=== PATIENT | female | born 1995 | race Caucasian/White ===

== ENCOUNTER 2019-01-31 10:29 | Observation (INO) ==
[2019-01-31] MEDS ORDERED: MOM Conc 10 ML UD.LIQ PO PRN (12:47)
[2019-01-31] MEDS ORDERED: Mag Hydrox/Al Hydrox/Simeth 30 ML UDC PO PRN (12:47)
[2019-01-31] MEDS ORDERED: traZODone 50 MG TABLET PO PRN (12:47)
[2019-01-31] MEDS ORDERED: *HR* LORazepam 2 MG/ML VIAL IM PRN (12:47)
[2019-01-31] MEDS ORDERED: Ibuprofen 400 MG TABLET PO PRN (12:47)
[2019-01-31] MEDS ORDERED: *HR* LORazepam 1 MG TABLET PO PRN (12:47)
[2019-01-31] MEDS: hydrOXYzine pamoate 25 MG CAPSULE PO PRN ×2 (17:46→20:53)
--- NOTE | 2019-02-01 12:23 | Psychiatry History & Physical ---
Date of Encounter: 02/01/19 Time of Encounter: 11:00 History of Present Illness Patient Stated Chief Complaint: "anxiety attack during clinicals and failed MedSurg" Medicare Admission Attestation: For traditional Medicare patients the provided hospital inpatient services are reasonable and necessary and in the case of services not specified as inpatient-only under 42 CFR 419.22 (n), that they are appropriately provided as inpatient services in accordance 42 CFR 412.3. For Critical Access Hospital the patient may reasonably be expected to be discharged or transferred to a hospital within 96 hours after admission to the Critical Access Hospital. Admitted From: Direct Admit (direct admit from [facility] ED) Plans for Post Hospital Care: Home History of Present Illness: Ms. Barnes is a 23 year old female who was admitted for suicidal ideation. 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 She reports that she failed her MedSurg clinical last Friday because she had an anxiety attack. She was sad throughout the week, but kept busy by hanging out with friends. On 01/30/19, she went to [facility] in [place] and had a lot to drink. While she was intoxicated, she told her friends that she wanted to kill herself. They called the police, who brought her to [facility], and then she was transferred to [place]. She denies ever attempting suicide and denies that she had a plan on admission. She has cut her wrists in the past, but states that it was to relieve stress, not to kill herself. She did cut right wrist this past weekend, which was the first self-inflicted wound in over a year. She is currently denying suicidal ideation, and states that she is happy to be alive. She wants to live because now she knows "how much other people care about me." Her parents visited her on the unit last night from [place] she states that she was happy to see them. She says that she has a good relationship with her parents, but that they were hurt that she hadn't told them what was going on or asked them for help. She says that if she were to have suicidal thoughts again, she would tell her parents. She also plans to continue to follow up with her counselor. Currently denies suicidal ideation, on the subtle ideation, auditory and visual hallucinations. Rates her current depression level as 0/10 on a 0-10 scale with 0 being none and 10 being the worst. She rates her anxiety as 1/10 on the same scale. Denies being in any physical pain. Past Med Surg Social Fam HX - Past Medical History Medical history: no medical history - Past Psychiatric History Psychiatric history: Reports: anxiety, ADHD. Denies: prior suicide attempt, previous psychiatric hospitalization Past psychiatric history details: Reports that she has never been hospitalized in a psychiatric unit in the past. She has been diagnosed with ADHD and generalized anxiety disorder. She used to take Vyvanse, but was recently switched to Adderall. She states that the panic attack at [facility] happened during this medication change. She also states that she is seen a counselor in the past. She used to see a counselor at [employer], but stated that "they sucked." She now sees a counselor in [place]. Family psychiatric history: Yes Family Psychiatric History Details: Paternal grandmother has bipolar disorder. Family History of Suicide: None - Past Surgical History Surgical History: no surgical history - Social History Smoking Status: Never smoker Smokeless Tobacco Status: No Alcohol use: occasionally, recent Drug use: marijuana Additional substance use detail: Patient states that she does drink alcohol. She drank heavily on 01/30/2019 at [employer] in [place], which led to her admitting to her friends that she wanted to kill herself. She states that this was her first time d rinking alcohol since [facility] and that this was her first time going out all school year. She admits to smoking marijuana, but denies using any other illicit substances. She did test positive for THC and amphetamines on urine drug screen, which would correlate to the marijuana and Adderall. Denies tobacco use. Occupational status: student Current living situation: Home Activity Level: Independent ambulation Additional social history: Patient was born and raised in [place], [place] by b oth parents. She is the middle child, and has an older sister and a younger brother. She reports being posterior to her younger brother than her older sister. 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 Hobbies include hanging out with her friends. - Family History Mother Adopted: [place]: Daniela Barnes Age: 49 Family Member Ethnicity: Non- Living Status: Still Living Hx Family Cardiac Disorders: No Hx Family Respiratory Disorders: No Hx Family Cancer: No Hx Family GI Disorders: No Hx Family Genitourinary Disorders: No Hx Family Endocrine Disorder: No Hx Family Musculoskeletal Disorders: No Hx Family Neuromuscular Disorders: No Hx Family Neurologic Disorders: No Hx Family HEENT Disorders: No Hx Family Autoimmune Disorders: No Hx Family Reproductive Disorders: No Hx Family Psychosocial Disorders: No Hx Family Medical Disorders: No Medications & Allergies Dextroamphetamine/Amphetamine [Adderall Xr 20 mg Capsule] 20 mg PO DAILY 02/01/19 [History] Multivit with Calcium,Iron,Min [One Daily Women's] 2 tab PO DAILY 02/01/19 [History] Allergy/AdvReac Type Severity Reaction Status Date / Time No Known Allergies Allergy Verified 02/01/19 08:40 Review of Systems Musculoskeletal: Reports: other (denies pain over her self-inflicted wounds) Psychiatric: Reports: anxiety, difficulty concentrating, panic attacks. Denies: depression, suicidal ideation, homicidal ideation, auditory hallucinations, visual hallucinations Exam - HEENT Head exam IM: Present: normal inspection Eye exam IM: Present: EOMI, normal appearance - Neurological Neurological exam: Present: alert - Respiratory Respiratory exam IM: Absent: accessory muscle use, respiratory distress - Extremities Extremities exam IM: Present: full ROM - Skin Skin exam IM: Present: abrasion (Several horizontal self-inflicted wounds on right wrist; no obvious signs of infection), dry - Constitutional Vitals: Temp Pulse Resp BP Pulse Ox 98.5 F 77 16 124/82 95 01/31/19 20:54 01/31/19 20:54 01/31/19 20:54 01/31/19 20:54 01/31/19 20:54 General appearance: age & developmentally appropriate, well-groomed, thin - Musculoskeletal Gait: normal Station: relaxed Strength & Tone: normal for patient - Psychiatric Patient Orientation: Yes Person, Yes Time, Yes Place, Yes Circumstance Level of alertness: Alert Behavior: calm, cooperative Psychomotor activity: Normal Eye Contact: Maintains Eye Contact Mood Description: Euthymic/stable Patient description of mood: "happy" Affect description: congruent with mood Speech Volume: Normal Speech pattern: normal rate, normal rhythm, normal tone, appropriate, clear, coherent Language & Vocabulary: consistent with education Thought Process: Intact, Logical, Linear, Goal Oriented Thought Content: Yes Intact, No Suicidal ideation, No Homicidal ideation Perceptual Disturbances: No Reacting to internal stimuli, No Auditory hallucinations, No Visual hallucinations Attention Span Ability: Capable of Focused Attention Memory Description: Grossly Intact Patient Reliability: Reliable Historian Fund of knowledge: Yes average Intelligence Estimate: Average Judgment: Fair Insight: Partial Assessment and Plan (1) Anxiety Status: Chronic Additional Plan: 1. Patient seems to have anxiety due to recent school stressors. Currently denying suicidal ideation and rates her anxiety as 11/19. 2. No new medications are indicated at this time. 3. Encourage group participation while on the unit. Patient has been seen attending several groups today and interacting with other patients. 4. Plan for discharge home today with father. 5. Patient is to follow-up with her outpatient counselor. (2) Self-inflicted laceration of wrist Status: Acute Plan: Admit inpatient for safety and stabilization, Close observation, Suicide Precautions per unit protocol, Encourage participation in unit milieu, Group Therapy, Monitor sleep, Monitor appetite Additional Plan: 1. Please see above plan. Qualifiers: Encounter type: initial encounter Laterality: right Qualified Code(s): S61.511A - Laceration without foreign body of right wrist, initial encounter - Attending Attestation I examined this patient and my medical decision-making was reviewed with the Resident Physician. I agree with the documented findings, disposition and treatment plan as described.
--- NOTE | 2019-02-01 12:24 | Discharge Summary ---
Date of Encounter: 02/01/19 Time of Encounter: 11:00 Diagnosis - Discharge Diagnosis (1) Anxiety Status: Chronic (2) Self-inflicted laceration of wrist Status: Acute Qualifiers: Encounter type: initial encounter Laterality: right Qualified Code(s): S61.511A - Laceration without foreign body of right wrist, initial encounter Medications - Discharge Medications Dextroamphetamine/Amphetamine [Adderall Xr 20 mg Capsule] 20 mg PO DAILY 02/01/19 [History] Multivit with Calcium,Iron,Min [One Daily Women's] 2 tab PO DAILY 02/01/19 [History] Allergy/AdvReac Type Severity Reaction Status Date / Time No Known Allergies Allergy Verified 02/01/19 08:40 Provider Date of admission: 01/31/19 10:29 Primary care physician: PCP NONE Discharging clinician: Daniela Connolly Psychiatry Exam - Constitutional Vitals: Temp Pulse Resp BP Pulse Ox 98.5 F 77 16 124/82 95 01/31/19 20:54 01/31/19 20:54 01/31/19 20:54 01/31/19 20:54 01/31/19 20:54 General appearance: age & developmentally appropriate, well-groomed, thin - Musculoskeletal Gait: normal Station: relaxed Strength & Tone: normal for patient - Psychiatric Patient Orientation: Yes Person, Yes Time, Yes Place, Yes Circumstance Level of alertness: Alert Behavior: calm, cooperative Psychomotor activity: Normal Eye Contact: Maintains Eye Contact Mood Description: Euthymic/stable Patient description of mood: "happy" Affect description: congruent with mood Speech Volume: Normal Speech pattern: normal rate, normal rhythm, normal tone, appropriate, clear, coherent Language & Vocabulary: consistent with education Thought Process: Intact, Logical, Linear, Goal Oriented Thought Content: Yes Intact, No Suicidal ideation, No Homicidal ideation Perceptual Disturbances: No Reacting to internal stimuli, No Auditory hallucinations, No Visual hallucinations Attention Span Ability: Capable of Focused Attention Memory Description: Grossly Intact Patient Reliability: Reliable Historian Fund of knowledge: Yes average Intelligence Estimate: Average Judgment: Fair Insight: Partial Hospital Course Hospital course: Ms. Barnes is a 23 year old female who was brought to the psychiatric unit for observation due to suicidal ideation without a plan. Patient was not started on any new medications during her admission, other than as needed medications. She did receive one dose of hydroxyzine and one dose of trazodone last night, however was not discharged on these. She attended groups and interacted with other patients on the unit. On discharge, she denied suicidal ideation, stating that she knows "how much other people care about me." Her parents visited her on the unit yesterday from [place], which she appreciated. She is being discharged home to her parents before she ultimately goes back to [place]. This provider's attending physician spoke to the patient's mother who was in agreement with the treatment plan. Patient was educated of her diagnosis and the risks, benefits, and side effects of this treatment and of alternative treatment options and was monitored for responsiveness and side effects. Mood, anxiety, sleep, appetite, and interest improved as did future orientation. Self-harm thoughts subsided, thinking cleared, and mood stabilized. Patient was able to attend both individual and group therapy sessions as well as meeting with the psychiatrist daily and urged to discuss any medication or treatment issues or other concerns. The patient was educated primarily by verbal means about their diagnosis and manifestations in their life. The option for treatment including group and individual therapy programming was offered to the patient in the use of medications with all their potential risks, benefits, and side effects were discussed with the patient at length. The patient was given the opportunity to ask questions and was noted to participate in the treatment in the planning process. The patient felt ready and eager to be discharged from the inpatient psychiatric unit to continue on with treatment as an outpatient. The patient agreed that is they were safe for this disposition. The patient was considered to be able to participate in informed consent and decision making with respect to medical, legal, and financial issues of the time of discharge. At the time of discharge the patient adamantly denied any concerns for lethality including suicidal or homicidal thoughts/ideations or plans and was future oriented toward ongoing mental health care, medical follow-up. - Time Spent with Patient Total time spent providing and/or coordinating discharge services: Greater than 30 minutes Specific discharge activities: Interval history reviewed. Available labs reviewed. Psychotherapy provided. Patient had an opportunity to ask questions and address concerns. Patient was in agreement with the treatment plan. The risks benefits and side effects of medications were discussed with the patient, including alternatives and treatment. The patient was educated on the abstaining from any alcohol or illicit substances, following up with all scheduled appointments, and taking all medications as prescribed. Assessment and Plan - Patient/Caregiver Discharge Instructions Activity: resume usual activities as tolerated, return to school Diet: regular diet Additional Instructions: Continue current medications. Follow up with outpatient mental health. Encourage continued therapy in a group or individual setting. The patient was discharged to home with her parents. She was picked up by her father. - Follow up Plan Follow up with: [facility], [place] [Other] (Message left with agency to schedule your first time appointment. 1A staff will call you with appointment information. ) [facility] Lucero, [place] [Other] (Please contact the office at the number above and follow up with your primary care provider as needed. Please keep your primary care provider informed of any changes in your medications or medical conditions. ) Functional capacity at discharge: independent ambulation Overall status at discharge: Stable Disposition: Home, Self-Care Quality - Multiple Antipsychotics Patient discharged on 2 or more antipsychotic medications: No - Attending Attestation I examined this patient and my medical decision-making was reviewed with the Resident Physician. I agree with the documented findings, disposition and t reatment plan as described except to the extent set forth below. Client denies any suicidal ideation, intent, or plan today. Bright, reactive, and future oriented. Wants to follow up with a counselor but denies wanting/needing medication. Recently started Adderall and feels this is helping her. Will consider an antidepressant down the road if depression becomes an issue but denies feeling like she needs anything for mood at this time. Client believes she was intoxicated at the time she endorsed SI to her friends and does not remember doing so. Spoke with client's mother who denied having any safety concerns and believes client endorsed SI due to alcohol. Family wanting/willing to pick her up. Total time spent with client greater than 30 minutes. Procedures - Procedures Procedures: Medication Management, Crisis Stabilization, Supportive Therapy, Group Therapy, Psychoeducational Therapy
[2019-02-01 12:58] VITALS: BP 113/76
== END 2019-02-01 14:40 | disposition home or self-care (01) ==
LOC: 1ANU 10:29 → INTOOBSV 10:29
PROVIDERS: ADMIT Psychiatry & Neurology Psychiatry; ATTEND Psychiatry & Neurology Psychiatry